=== PATIENT | male | born 1945 | race Caucasian/White ===

== ENCOUNTER 2017-10-16 10:01 | Emergency (ER) | payer MEDICARE ==
[~2017-10-16] VITALS: Ht 182.9 cm; Wt 76.7 kg
[2017-10-16] MEDS ORDERED: IV NORMAL SALINE 1000ML BAG 1,000 ML IV SCH (10:02)
[2017-10-16 10:14] LABS: BASO % 0 % (0-3); EOS % 0 % (0-3); HEMATOCRIT 52.1 % (39.0-53.0); HEMOGLOBIN 17.2 g/dL (13.0-17.5); LYMPH # 1.4 x10^3/uL (1.0-4.8); LYMPH % 9 % (24-48); MEAN CORPUSCULAR HEMOGLOBIN 32 pg (25-35); MEAN CORPUSCULAR HGB CONC 33 g/dL (31-37); MEAN CORPUSCULAR VOLUME 97 fL (79-100); MONO % 13 % (0-9); NEUT % 78 % (31-73); PLATELET COUNT 125 x10^3/uL (140-400); RED BLOOD COUNT 5.36 x10^6/uL (4.30-5.70); RED CELL DISTRIBUTION WIDTH 14.3 % (11.5-14.5); WHITE BLOOD COUNT 15.3 x10^3/uL (4.0-11.0)
[2017-10-16] MEDS ORDERED: IPRATROPIUM BROMIDE 0.5 MG/2.5 ML NEBU. NEB ONE (10:15)
[2017-10-16] MEDS ORDERED: HYDROmorphone 2 MG/ML VIAL IV/SQ PRN (10:15)
[2017-10-16] MEDS ORDERED: ALBUTEROL SULFATE 2.5 MG/3 ML NEBU. CONT NEB ONE (10:15)
[2017-10-16] MEDS ORDERED: methylPREDNISolone SOD SUCC PF 125 MG/2 ML VIAL. IV ONE (10:15)
[2017-10-16] MEDS ORDERED: ONDANSETRON PF 4 MG/2 ML VIAL. IV ONE (10:15)
[2017-10-16] MEDS ORDERED: 0.9 % SODIUM CHLORIDE 10 ML DISP.SYRIN. IV PRN (10:15)
--- NOTE | 2017-10-16 10:16 | PHYS DOC ---
Past Medical History Past Medical History: No Pertinent History Additional Past Surgical Histo: inguinal hernia repair Smoking: Greater than 1 pack/day Alcohol Use: Occasionally Drug Use: None Adult General Chief Complaint Chief Complaint: TRAUMA ALERT HPI HPI Patient is a pleasant 71-year-old male who is in normal state of health yesterday until he fell to the left side of his body landing on his left hip from a 7 foot ladder onto unimproved ground. He was up a ladder trying to fix to shingles on his roof when he slipped landing on the left side. He sustained injuries to his lower legs bilaterally describes as mild abrasions but his main complaint today is increasing hip pain that is worse with any range of motion or direct pressure on the lateral aspect of the hip. He complains of left flank pain without nausea, vomiting, diarrhea, UTI symptoms, blood in his stool, and his urine, or other complaints. He is short of breath but he believes it is not associated with his hip injury. He denies any chest pain, denies any chest wall injury but is having shortness of breath has gotten progressively worse and chest today. He is a heavy smoker but denies any prior intervention with metered -dose inhaler score chronic use of nebulizers, steroids or lung therapies for treatment of asthma or COPD. He is presently on no medications, denies any travel outside the country or other PE risk factors. He denies any lightheadedness or dizziness, denies any neck pain, denies any facial or headache. Patient further denies any numbness and tingling below the injury on the left hip. He's had no difficulty urinating. Differential diagnosis: Acute myocardial ischemia, heart failure, cardiac tamponade, bronchospasm, pulmonary embolism, pneumothorax, pulmonary infection i.e. bronchitis or pneumonia, upper airway obstruction, anaphylaxis, aspiration , psychogenic, pulmonary contusion, toxidrome, pneumomediastinum, noncardiogenic pulmonary edema or ARDS, COPD, tuberculosis, cystic fibrosis, asthma, high altitude pulmonary edema, valvular dysfunction, cardiac dysrhythmia , stroke, neuromuscular diseases like myasthenia gravis gravis, ALS, Guillain- Sanchez syndrome, metabolic acidosis to include diabetic ketoacidosis, sepsis, and obstructive disorders like massive obesity He has considerable shortness of breath which I believe is not likely associated with the trauma but a full trauma activation was called secondary to his respiratory challenges. I believe that his chest for challenges or more socially with COPD and chronic bronchitis then associated with a possible fat emboli from a broken long bone fracture. We will screen him for such injuries. Upon noticing his difficulty breathing patient was immediately treated with a continuous neb along with Solu-Medrol and ipratropium. He also given pain medications and fluids. He will have imaging of his chest, hip and pelvis completed. Review of Systems Review of Systems Constitutional: Denies fever or chills [] Eyes: Denies change in visual acuity, redness, or eye pain [] HENT: Denies nasal congestion or sore throat [] Respiratory: He complains of a cough and shortness of breath that is progressively last 48 hours. Cardiovascular: No additional information not addressed in HPI [] GI: Denies abdominal pain, nausea, vomiting, bloody stools or diarrhea [] : Denies dysuria or hematuria [] Musculoskeletal patient complains of left hip pain without back pain or leg pain. He has a small abrasion on his lower external knees but no problems with range of motion or numbness and tingling. Integument: Denies rash or skin lesions he has a couple healing abrasions on his lower legs bilaterally over the knees and lateral shins bilaterally. Neurologic: Denies headache, focal weakness or sensory changes [] Endocrine: Denies polyuria or polydipsia [] All other systems were reviewed and found to be within normal limits, except as documented in this note. Current Medications Current Medications Current Medications Medications (Trade) Dose Ordered Sig/No Start Time Stop Time Status Last Admin Dose Admin Albuterol Sulfate (Ventolin Neb Soln) 10 mg 1X ONCE 10/16/17 10:15 10/16/17 10:16 DC 10/16/17 10:22 10 MG Azithromycin 250 ml @ 250 mls/hr 1X ONCE 10/16/17 11:00 10/16/17 11:59 Ceftriaxone Sodium 50 ml @ 100 mls/hr 1X ONCE 10/16/17 11:00 10/16/17 11:29 DC Hydromorphone HCl (Dilaudid) 1 mg PRN Q15MIN PRN 10/16/17 10:15 10/17/17 10:14 10/16/17 10:19 1 MG Info (Do NOT chart on this entry -- for MONITORING) 1 each PRN DAILY PRN 10/16/17 10:30 10/18/17 10:29 Iohexol (Omnipaque 300 Mg/ml) 75 ml 1X ONCE 10/16/17 10:30 10/16/17 10:31 DC 10/16/17 10:55 60 ML Ipratropium [place] (Atrovent) 0.5 mg 1X ONCE 10/16/17 10:15 10/16/17 10:16 DC 10/16/17 10:22 0.5 MG Lorazepam (Ativan) 1 mg 1X ONCE 10/16/17 10:15 10/16/17 10:16 DC 10/16/17 10:20 1 MG Methylprednisolone Sodium Succinate (SOLU-Medrol 125MG VIAL) 125 mg 1X ONCE 10/16/17 10:15 10/16/17 10:16 DC 10/16/17 10:19 125 MG Ondansetron HCl (Zofran) 4 mg 1X ONCE 10/16/17 10:15 10/16/17 10:16 DC 10/16/17 10:19 4 MG Sodium Chloride (Normal Saline Flush) 10 ml QSHIFT PRN 10/16/17 10:15 Allergies Allergies Allergies Coded Allergies Type Severity Reaction Last Updated Verified No Known Drug Allergies 10/16/17 No Physical Exam Physical Exam Patient's vital signs noted to be abnormal with tachypnea, hypoxia. Hypertensive. Constitutional: Well developed, well nourished, he noted to be very uncomfortable nondiaphoretic and pale patient has significant amount of pain with any movement of his left hip. he speaks in 6-8 word sentences without any obvious retractions or accessory muscle use. He claims that he is "" like this all the time. HENT: Normocephalic, atraumatic, bilateral external ears normal, oropharynx dry mucous membranes no oral exudates, no oral lesions of bite mac nose normal. [] Eyes: PERRLA, EOMI, conjunctiva normal, no discharge. [] Neck: Normal range of motion, no tenderness, supple, no stridor. No midline tenderness to palpation no alcohol on board [] Cardiovascular:Heart rate regular rhythm, no murmur [] Lungs & Thorax: he has diffuse wheezing from his lungs with no retractions or sensory muscle use. There is no obvious rhonchi or rales no obvious trauma is the chest wall Abdomen: Bowel sounds normal, soft, patient has tenderness of the lateral left flank with some large abrasion small contusion. There is no Lewis Oseguera sign, no guarding rebound or organomegaly Skin: Warm, dry, no erythema, no rash. [] Back: No tenderness, no CVA tenderness. [] Extremities: he has 7 significant tenderness to palpation lateral and inguinal section of the femoral neck. There is significant pain with range of motion patient has holding his leg internally rotated and and flexed. Neurologic: Alert and oriented X 3, normal motor function, normal sensory function, no focal deficits noted. [] Psychologic: Affect normal, judgement normal, mood normal. [] Current Patient Data Vital Signs Vital Signs Date Time Temp Pulse Resp B/P (MAP) Pulse Ox O2 Delivery O2 Flow Rate FiO2 10/16/17 10:45 78 24 138/61 (86) 93 Nasal Cannula 5.0 10/16/17 10:01 98.1 98.1 Lab Values Laboratory Tests Test 10/16/17 10:05 10/16/17 10:30 White Blood Count 15.3 x10^3/uL (4.0-11.0) H Red Blood Count 5.36 x10^6/uL (4.30-5.70) Hemoglobin 17.2 g/dL (13.0-17.5) Hematocrit 52.1 % (39.0-53.0) Mean Corpuscular Volume 97 fL (79-100) Mean Corpuscular Hemoglobin 32 pg (25-35) Mean Corpuscular Hemoglobin Concent 33 g/dL (31-37) Red Cell Distribution Width 14.3 % (11.5-14.5) Platelet Count 125 x10^3/uL (140-400) L Neutrophils (%) (Auto) 78 % (31-73) H Lymphocytes (%) (Auto) 9 % (24-48) L Monocytes (%) (Auto) 13 % (0-9) H Eosinophils (%) (Auto) 0 % (0-3) Basophils (%) (Auto) 0 % (0-3) Neutrophils # (Auto) 11.9 x10^3uL (1.8-7.7) H Lymphocytes # (Auto) 1.4 x10^3/uL (1.0-4.8) Monocytes # (Auto) 2.0 x10^3/uL (0.0-1.1) H Eosinophils # (Auto) 0.0 x10^3/uL (0.0-0.7) Basophils # (Auto) 0.0 x10^3/uL (0.0-0.2) Segmented Neutrophils % 82 % (35-66) H Band Neutrophils % 6 % (0-9) Lymphocytes % 9 % (24-48) L Monocytes % 3 % (0-10) Platelet Estimate Adequate (ADEQUATE) Sodium Level 128 mmol/L (136-145) L Potassium Level 4.9 mmol/L (3.5-5.1) Chloride Level 90 mmol/L (98-107) L Carbon Dioxide Level 28 mmol/L (21-32) Anion Gap 10 (6-14) Blood Urea Nitrogen 20 mg/dL (8-26) Creatinine 1.5 mg/dL (0.7-1.3) H Estimated GFR (Cockcroft-Gault) 46.1 BUN/Creatinine Ratio 13 (6-20) Glucose Level 114 mg/dL (70-99) H Lactic Acid Level 4.6 mmol/L (0.4-2.0) *H Calcium Level 9.6 mg/dL (8.5-10.1) Magnesium Level 2.0 mg/dL (1.8-2.4) Total Bilirubin 2.1 mg/dL (0.2-1.0) H Aspartate Amino Transferase (AST) 146 U/L (15-37) H Alanine Aminotransferase (ALT) 72 U/L (16-63) H Alkaline Phosphatase 89 U/L (46-116) Creatine Kinase 5454 U/L (39-308) H Creatine Kinase MB (Mass) 52.7 ng/mL (0.0-3.6) H Creatine Kinase MB Relative Index 1.0 % (0-4) Troponin I Quantitative < 0.017 ng/mL (0.000-0.055) LD-Yyl-P-Type Natriuretic Peptide 37 pg/mL (0-124) Total Protein 7.4 g/dL (6.4-8.2) Albumin 4.5 g/dL (3.4-5.0) Albumin/Globulin Ratio 1.6 (1.0-1.7) Thyroid Stimulating Hormone (TSH) 4.772 uIU/mL (0.358-3.74) H Ethyl Alcohol Level < 10 mg/dL (0-10) O2 Saturation 84 % (92-99) L Arterial Blood pH 7.43 (7.35-7.45) Arterial Blood pCO2 at Patient Temp 37 mmHg (35-46) Arterial Blood pO2 at Patient Temp 47 mmHg (65-108) *L Arterial Blood HCO3 24 mmol/L (21-28) Arterial Blood Base Excess 0 mmol/L (-3-3) FiO2 21.0 Laboratory Tests 10/16/17 10:05 Laboratory Tests 10/16/17 10:05 EKG EKG []EKG timed at 10:34 AM read by me 10/16/2017 demonstrates heart rate of 84 there is a P-wave QRS this is normal sinus rhythm there is no ST segment T-wave changes consistent with acute cord ischemia. Patient's GA interval was 166, QRS width is 100, QTC is 421, all intervals within normal limits as is normal EKG. Radiology/Procedures Radiology/Procedures [] [facility] [address] [place], [place] [id number] IMAGING REPORT Signed PATIENT: RENETTA WARE ACCOUNT: [id number] : 1945 LOCATION: ER AGE: 71 SEX: M EXAM STATUS: REG ER ORD. PHYSICIAN: ABBEY REDDING MD REASON: fall from ladder PROCEDURE: CT ABD PELV W/ IV CONTRST ONLY CT of the abdomen and pelvis with contrast, 10/16/2017: History: Fall from ladder Multidetector CT imaging was performed following an IV bolus injection of iodinated contrast material. No oral contrast material was administered for this study. There is a comminuted fracture of the left hemipelvis. This involves the superior, medial and posterior gardner of the left acetabulum as well as the superior pubic ramus at its junction with the acetabulum. There is only mild displacement and cortical offset at some of these fracture sites. The proximal left femur is intact. No other fracture is identified. There is soft tissue thickening at the level of the left obturator internus muscle compatible with adjacent hemorrhage. There are additional streaky opacities compatible with hemorrhage within the left side of the pelvis impressing upon the left side of the urinary bladder. These streaky opacities extend along the anterior aspect of the urinary bladder to the upper pelvic level. A small amount of hemorrhage extends into the left iliac fossa and posterior pararenal space on the left. There is no evidence of a hepatic or splenic laceration. The gallbladder is unremarkable. No pancreatic abnormality is seen. The kidneys are unremarkable. Moderate aortoiliac calcific plaquing is present. There is a moderate collection of stool in the rectum. Multiple sigmoid diverticula are present. The bowel loops are not dilated. There is mild distention of the stomach with gas and fluid. No free air is evident in the abdomen or pelvis. IMPRESSION: 1. Acute left-sided pelvic fracture centered at the level of the acetabulum. 2. Mild to moderate associated hemorrhage in the left pelvis extending superiorly along the anterior aspect of the urinary bladder and into the left posterior pararenal space. PQRS Compliance Statement: One or more of the following individualized dose reduction techniques were utilized for this examination: 1. Automated exposure control 2. Adjustment of the mA and/or kV according to patient size 3. Use of iterative reconstruction technique DICTATED and SIGNED BY: CUCO SHELBY MD DATE: 10/16/17 1108 CC: ABBEY REDDING MD; NO [facility] ~ [address], [place] [id number] IMAGING REPORT Signed PATIENT: RENETTA WARE ACCOUNT: [id number] : 1945 LOCATION: ER AGE: 71 SEX: M EXAM STATUS: REG ER ORD. PHYSICIAN: ABBEY REDDING MD REASON: fall from ladder PROCEDURE: CHEST AP ONLY Indication: Fall from ladder yesterday, pain. Smoker. Short of air. Technique: Supine portable chest radiograph was obtained. No comparison is available. Film was repeated to include the lung bases. Findings: The lungs are clear. There is no definite pneumothorax on the supine images. Cardiomediastinal silhouette is within normal limits. There is minimal atheromatous disease in the thoracic aorta. Leads overlie the patient. Impression: No acute thoracic findings. DICTATED and SIGNED BY: LALITA NICHOLS MD DATE: 10/16/17 1027 CC: ABBEY REDDING MD; NO PCP ~ [address] [place] [address] IMAGING REPORT Signed PATIENT: RENETTA WARE ACCOUNT: [id number] : 1945 LOCATION: ER AGE: 71 SEX: M EXAM STATUS: REG ER ORD. PHYSICIAN: ABBEY REDDING MD REASON: fall from ladder PROCEDURE: PELVIS Indication: Left hip pain. Fall from ladder yesterday. Technique: AP pelvis is submitted for review. No comparison is available. Findings: There is probably an acetabular fracture superiorly involving the left hip. This appears acute. The bony pelvis otherwise appears intact. Left iliac crest is clipped. Impression: Suspected acute traumatic superior left acetabular fracture. Recommend CT to confirm as well as for surgical planning purposes. DICTATED and SIGNED BY: LALITA NICHOLS MD DATE: 10/16/17 1023 CC: ABBEY REDDING MD; NO PCP ~ Course & Med Decision Making Course & Med Decision Making Pertinent Labs and Imaging studies reviewed. (See chart for details) []Impression is a pleasant 71-year-old male fell from a 7 foot ladder onto the left hip and pelvis causing significant pain. Patient was of no neck pain, no chest pain or significant abdominal pain at this time just pelvic pain with movement. He is having significant shortness of breath but I believe it's associated with his COPD although was not diagnosed patient does smoke a pack and half a day. He came in very hypoxic tachypnea he denies any chest pain again denies any chest wall movement abnormalities. Patient immediately started on oxygen after his ABG showed a patient with a pH of 7.43 which shows mild respiratory alkalosis although his pH is high his PCO2 is 37 which is normal, PO2 is 47 he is hypoxic. Patient's bicarbonate is 24 A some physical exam finds my concern is either a pelvic fracture or acetabular fracture or pelvic rim fracture. Patient is a positive pelvic rock on physical exam although there is no significant finding of ecchymosis along the pelvic rim just along the abdominal wall on the left. Patient have a contrasted CT scan of the abdomen pelvis completed. Reviewed by me demonstrate no specific findings of flail chest, rib fracture or pulmonary contusion. Patient has hyperinflated lungs but no other findings. Patient's lung sounds are improved with a continuous DuoNeb for one hour. Patient also placed on 5 L nonrebreather mask to treat his hypoxia as noted by the ABG. Patient is also received pain medications include Dilaudid and Ativan for his anxiety upon arrival. Patient's respiratory drive is improved but he is still hypoxic and some significant sleep apnea while sedated. he was taken off the DuoNeb for approximately 30 minutes to get his CT abdomen pelvis completed Patient had no x-rays of the lower external is done as his ankles shins knees have abrasions but no specific injuries that require x-rays at this time. He has full range of motion at each of these joints with no pain with axial loading. He has normal sensation proprioception overall these extremities as well. CT scan is returned at approximately 11:40 AM demonstrating significant acetabular fracture with some intra-abdominal hemorrhage. [facility] note: Dr. Samantha Topete physician surgeon for trauma [facility] called at of the service 11:40 am Consult called back at 11:41 Discussed the case I presented and they agreed with admission need but would recommend transfer to a facility that can deal with this particular injury pattern or acetabular fracture. He would probably be better served going to a full trauma center at that can assess all of his intra-abdominal needs as well as his pulmonary needs. [facility] note: Dr. Lau orthopedic surgery on-call [facility] called at of the service service reason patient 11:40 AM Consult called back at [facility] note: Attempted call to [facility] transfer line trauma center called at approximate 11:44 AM [facility] called at of the service spoke with their emergent physician Dr. Que Leong Consult called back at 11:45 AM Discussed the case I presented and they agreed with admission. Time of acceptance 1:45 AM. I told him that I would not do any further imaging at this time I will place all the images on the cloud as well as a hard disc to be provided with the patient. We did discuss with for his shortness of breath which is likely COPD and not associated with a significant trauma to the chest wall. There is no evidence of pulmonary infiltrate, or pulmonary contusion. There are no rib fractures. Patient is not having any chest pain about the shortness breath is improved significantly with a 3 duo nebs given an hour as well as Solu-Medrol. Patient will be given respiratory coverage for a possible infection given his COPD given Rocephin and azithromycin. Because his lactic acid was elevated 4.7. This is likely to represent decreased perfusion and respiratory failure and his part given his COPD. Patient's pH initially on arrival was 7.43 but he is very hypoxic. Patient's hypoxia is improved with nasal cannula is graduated to respiratory mask from 5 L to 5 L on arrival nonrebreather. Patient when he goes to sleep secondary to sedation secondary to medications given IV for his pain patient does become increasing hypoxic. When awake he is satting 97-90% on the nonrebreather mask is very lucid. Approximate 11:55 AM I did speak with family at length about need for transfer. I discussed with them my discussion with Dr. Topete my surgeon who agreed that she would be better served being treated by the a specific orthopedic surgeon fix this specific issue he has at the acetabular fracture which requires specialized treatment. Patient's family are amenable to transfer. Unless review of systems patient noted be no longer hypoxic on nonrebreather mask he feels markedly better no longer wheezing as much. He still has decreased breath sounds secondary to the COPD. Patient's CBC demonstrates an increased leukocytosis with 15,000 white count, CBC is otherwise stable. Patient 's troponin is negative, patient's BUN/creatinine are mildly elevated chemistry creatinine is 1.5 Laboratory Tests Test 10/16/17 10:05 10/16/17 10:30 White Blood Count 15.3 x10^3/uL (4.0-11.0) Red Blood Count 5.36 x10^6/uL (4.30-5.70) Hemoglobin 17.2 g/dL (13.0-17.5) Hematocrit 52.1 % (39.0-53.0) Mean Corpuscular Volume 97 fL (79-100) Mean Corpuscular Hemoglobin 32 pg (25-35) Mean Corpuscular Hemoglobin Concent 33 g/dL (31-37) Red Cell Distribution Width 14.3 % (11.5-14.5) Platelet Count 125 x10^3/uL (140-400) Neutrophils (%) (Auto) 78 % (31-73) Lymphocytes (%) (Auto) 9 % (24-48) Monocytes (%) (Auto) 13 % (0-9) Eosinophils (%) (Auto) 0 % (0-3) Basophils (%) (Auto) 0 % (0-3) Neutrophils # (Auto) 11.9 x10^3uL (1.8-7.7) Lymphocytes # (Auto) 1.4 x10^3/uL (1.0-4.8) Monocytes # (Auto) 2.0 x10^3/uL (0.0-1.1) Eosinophils # (Auto) 0.0 x10^3/uL (0.0-0.7) Basophils # (Auto) 0.0 x10^3/uL (0.0-0.2) Segmented Neutrophils % 82 % (35-66) Band Neutrophils % 6 % (0-9) Lymphocytes % 9 % (24-48) Monocytes % 3 % (0-10) Platelet Estimate Adequate (ADEQUATE) Sodium Level 128 mmol/L (136-145) Chloride Level 90 mmol/L (98-107) Carbon Dioxide Level 28 mmol/L (21-32) Anion Gap 10 (6-14) Blood Urea Nitrogen 20 mg/dL (8-26) Estimated GFR (Cockcroft-Gault) 46.1 BUN/Creatinine Ratio 13 (6-20) Glucose Level 114 mg/dL (70-99) Lactic Acid Level 4.6 mmol/L (0.4-2.0) Calcium Level 9.6 mg/dL (8.5-10.1) Total Bilirubin 2.1 mg/dL (0.2-1.0) Aspartate Amino Transf (AST/SGOT) 146 U/L (15-37) Alkaline Phosphatase 89 U/L (46-116) Creatine Kinase 5454 U/L (39-308) Creatine Kinase MB (Mass) 52.7 ng/mL (0.0-3.6) Creatine Kinase MB Relative Index 1.0 % (0-4) Troponin I Quantitative < 0.017 ng/mL (0.000-0.055) Total Protein 7.4 g/dL (6.4-8.2) Albumin 4.5 g/dL (3.4-5.0) Albumin/Globulin Ratio 1.6 (1.0-1.7) Ethyl Alcohol Level < 10 mg/dL (0-10) O2 Saturation 84 % (92-99) Arterial Blood pH 7.43 (7.35-7.45) Arterial Blood pCO2 at Patient Temp 37 mmHg (35-46) Arterial Blood pO2 at Patient Temp 47 mmHg (65-108) Arterial Blood HCO3 24 mmol/L (21-28) Arterial Blood Base Excess 0 mmol/L (-3-3) FiO2 21.0 Critical Care: The high probability of sudden, clinically significant deterioration in the patient's condition required the highest level of my preparedness to intervene urgently. The services I provided to this patient were to treat and/or prevent clinically significant deterioration. Services included the following: chart data review, reviewing nursing notes and/or old charts, documentation time, wig sales consultant collaboration regarding findings and treatment options, medication orders and management, direct patient care, vital sign assessments and ordering, interpreting and reviewing diagnostic studies/ lab tests. Aggregate critical care time includes only time during which I was engaged in work directly related to the patient's care, as described above, whether at the bedside or elsewhere in the Emergency Department. It did not include time spent performing other reported procedures or the services of nurses or physician assistants. Critical Care Time: 60 Dragon Disclaimer Dragon Disclaimer This electronic medical record was generated, in whole or in part, using a voice recognition dictation system. Departure Departure Impression: Primary Impression: COPD exacerbation Additional Impressions: Left acetabular fracture Intra abdominal hemorrhage Lactic acidosis Dyspnea Disposition: 02 TRANSFER [facility] Condition: GUARDED Problem Qualifiers ABBEY REDDING MD Oct 16, 2017 10:15
--- NOTE | 2017-10-16 10:29 | RAD ---
Indication: Left hip pain. Fall from ladder yesterday. Technique: AP pelvis is submitted for review. No comparison is available. Findings: There is probably an acetabular fracture superiorly involving the left hip. This appears acute. The bony pelvis otherwise appears intact. Left iliac crest is clipped. Impression: Suspected acute traumatic superior left acetabular fracture. Recommend CT to confirm as well as for surgical planning purposes.
[2017-10-16] MEDS ORDERED: CONTRAST GIVEN MC PRN (10:30)
[2017-10-16] MEDS ORDERED: IOHEXOL 300 MG/ML 100ML VIAL. IV ONE (10:30)
[2017-10-16 10:31] LABS: CALCIUM 9.6 mg/dL (8.5-10.1); CREATININE 1.5 mg/dL (0.7-1.3); GFR 46.1; POTASSIUM 4.9 mmol/L (3.5-5.1)
--- NOTE | 2017-10-16 10:31 | RAD ---
Indication: Fall from ladder yesterday, pain. Smoker. Short of air. Technique: Supine portable chest radiograph was obtained. No comparison is available. Film was repeated to include the lung bases. Findings: The lungs are clear. There is no definite pneumothorax on the supine images. Cardiomediastinal silhouette is within normal limits. There is minimal atheromatous disease in the thoracic aorta. Leads overlie the patient. Impression: No acute thoracic findings.
[2017-10-16 10:35] LABS: HCO3 ABG 24 mmol/L (21-28); PCO2 ABG 37 mmHg (35-46); PH ABG 7.43 (7.35-7.45); SAT O2 ABG 84 % (92-99)
[2017-10-16 10:40] LABS: PO2 ABG 47 mmHg (65-108)
[2017-10-16 10:41] LABS: ALBUMIN 4.5 g/dL (3.4-5.0); ALBUMIN/GLOBULIN RATIO 1.6 (1.0-1.7); TOTAL BILIRUBIN 2.1 mg/dL (0.2-1.0); TOTAL PROTEIN 7.4 g/dL (6.4-8.2)
[2017-10-16 10:44] LABS: CKMB MASS 52.7 ng/mL (0.0-3.6)
[2017-10-16] MEDS ORDERED: AZITHRMYCN 500MG IVPB FOR OMNI 250 ML IV ONE (11:00)
--- NOTE | 2017-10-16 11:25 | RAD ---
CT of the abdomen and pelvis with contrast, 10/16/2017: History: Fall from ladder Multidetector CT imaging was performed following an IV bolus injection of iodinated contrast material. No oral contrast material was administered for this study. There is a comminuted fracture of the left hemipelvis. This involves the superior, medial and posterior gardner of the left acetabulum as well as the superior pubic ramus at its junction with the acetabulum. There is only mild displacement and cortical offset at some of these fracture sites. The proximal left femur is intact. No other fracture is identified. There is soft tissue thickening at the level of the left obturator internus muscle compatible with adjacent hemorrhage. There are additional streaky opacities compatible with hemorrhage within the left side of the pelvis impressing upon the left side of the urinary bladder. These streaky opacities extend along the anterior aspect of the urinary bladder to the upper pelvic level. A small amount of hemorrhage extends into the left iliac fossa and posterior pararenal space on the left. There is no evidence of a hepatic or splenic laceration. The gallbladder is unremarkable. No pancreatic abnormality is seen. The kidneys are unremarkable. Moderate aortoiliac calcific plaquing is present. There is a moderate collection of stool in the rectum. Multiple sigmoid diverticula are present. The bowel loops are not dilated. There is mild distention of the stomach with gas and fluid. No free air is evident in the abdomen or pelvis. IMPRESSION: 1. Acute left-sided pelvic fracture centered at the level of the acetabulum. 2. Mild to moderate associated hemorrhage in the left pelvis extending superiorly along the anterior aspect of the urinary bladder and into the left posterior pararenal space. PQRS Compliance Statement: One or more of the following individualized dose reduction techniques were utilized for this examination: 1. Automated exposure control 2. Adjustment of the mA and/or kV according to patient size 3. Use of iterative reconstruction technique
[2017-10-16 11:28] LABS: PLT ESTIMATE ADEQUATE (ADEQUATE)
--- NOTE | 2017-10-16 12:42 | EKG ---
[facility] [address] [place] [address] Test Date: 2017-10-16 Test Time: 10:34:29 Pat Name: RENETTA WARE Department: Room: Gender: M Director Transition: : 1945 Requested By: ABBEY REDDING Order Number: [id number] Reading MD: Measurements Intervals [place] Rate: 83 P: 71 OR: 166 QRS: 81 QRSD: 100 T: 60 QT: 354 QTc: 421 Interpretive Statements SINUS RHYTHM NORMAL ECG No previous ECG available for comparison
[2017-10-16 13:15] VITALS: BP 142/56
== END 2017-10-16 13:40 | disposition short-term general hospital (02) ==
LOC: ER 10:01
DX: J44.1 Chronic obstructive pulmonary disease with (acute) exacerbation (principal); S32.402A Unspecified fracture of left acetabulum, initial encounter for closed fracture; R58 Hemorrhage, not elsewhere classified; E87.2 Acidosis; R06.00 Dyspnea, unspecified; Z98.890 Other specified postprocedural states; F17.210 Nicotine dependence, cigarettes, uncomplicated; W11.XXXA Fall on and from ladder, initial encounter; Y93.89 Activity, other specified; Y99.8 Other external cause status; Y92.89 Other specified places as the place of occurrence of the external cause
CPT/HCPCS: 36415; 36600; 71010; 72170; 74177; 80053; 82553; 82805; 83605; 83735; 83880; 84443; 84484; 85007; 85025; 86850; 86900; 86901; 87040; 93005; 94644; 96361; 96365; 96366; 96368; 96375; 99291; G0480; J0456; J0690; J1170; J2060; J2405; J2930; J7030; J7613; J7644; Q9967